=== PATIENT | female | born 2000 | race Caucasian/White ===

== ENCOUNTER 2025-01-08 19:58 | Emergency (ER) | payer MEDICAID, SELFPAY ==
[2025-01-08 19:58] VITALS: BP 163/105; PULSE 121; RESP 26; TEMP 36.7; O2SAT 96; BMI 40.7
--- NOTE | 2025-01-08 20:00 | XR_ITS ---
PROCEDURE INFORMATION: Exam: XR Left Wrist Exam date and time: 01/08/2025 9:52 PM Age: 24 years old Clinical indication: Pain; Wrist; Left; Additional info: Multiple dog bites, trauma TECHNIQUE: Imaging protocol: Radiologic exam of the left wrist. Views: 3 or more views. COMPARISON: CR XR HAND LT MIN 3V 01/08/2025 9:52 PM FINDINGS: Bones/joints: Normal. Soft tissues: Dorsal soft tissue swelling. IMPRESSION: No acute findings. Dorsal soft tissue swelling
--- NOTE | 2025-01-08 20:00 | XR_ITS ---
PROCEDURE INFORMATION: Exam: XR Right Hand Exam date and time: 01/08/2025 9:52 PM Age: 24 years old Clinical indication: Pain; Hand; Right; Additional info: Multiple dog bites, trauma TECHNIQUE: Imaging protocol: Radiologic exam of the right hand. Views: 3 or more views. COMPARISON: CR XR WRIST RT MIN 3V 01/08/2025 9:52 PM FINDINGS: Bones/joints: Normal. Soft tissues: Normal. IMPRESSION: No acute findings.
--- NOTE | 2025-01-08 20:00 | XR_ITS ---
PROCEDURE INFORMATION: Exam: XR Left Hand Exam date and time: 01/08/2025 9:52 PM Age: 24 years old Clinical indication: Pain; Hand; Left; Additional info: Multiple dog bites, trauma TECHNIQUE: Imaging protocol: Radiologic exam of the left hand. Views: 3 or more views. COMPARISON: CR XR HAND LT MIN 3V 01/08/2025 9:52 PM FINDINGS: Bones/joints: Normal. Soft tissues: Soft tissue gas within the thenar space. No radiopaque foreign bodies are identified. Other findings: . IMPRESSION: 1. Soft tissue gas within the thenar space. 2. No radiopaque foreign bodies are identified.
--- NOTE | 2025-01-08 20:00 | XR_ITS ---
PROCEDURE INFORMATION: Exam: XR Right Wrist Exam date and time: 01/08/2025 9:52 PM Age: 24 years old Clinical indication: Pain; Wrist; Right; Additional info: Multiple dog bites, trauma TECHNIQUE: Imaging protocol: Radiologic exam of the right wrist. Views: 3 or more views. COMPARISON: CR XR HAND RT MIN 3V 01/08/2025 9:52 PM FINDINGS: Bones/joints: Normal. Soft tissues: Normal. IMPRESSION: No acute findings.
--- NOTE | 2025-01-08 20:04 | XR_ITS ---
PROCEDURE INFORMATION: Exam: XR Right Ankle Exam date and time: 01/08/2025 9:52 PM Age: 24 years old Clinical indication: Pain; Ankle; Right; Additional info: Multiple dog bites, trauma TECHNIQUE: Imaging protocol: Radiologic exam of the right ankle. Views: 3 or more views. COMPARISON: CR XR ANKLE RT MIN 3V 01/08/2025 9:52 PM FINDINGS: Bones/joints: Normal. Soft tissues: Normal. IMPRESSION: No acute findings.
--- NOTE | 2025-01-08 20:04 | XR_ITS ---
PROCEDURE INFORMATION: Exam: XR Left Foot Exam date and time: 01/08/2025 9:52 PM Age: 24 years old Clinical indication: Pain; Foot; Left; Additional info: Multiple dog bites, trauma TECHNIQUE: Imaging protocol: Radiologic exam of the left foot. Views: 3 or more views. COMPARISON: CR XR FOOT LT MIN 3V 01/08/2025 9:52 PM FINDINGS: Bones/joints: Normal. Soft tissues: Normal. IMPRESSION: No acute findings.
--- NOTE | 2025-01-08 20:04 | XR_ITS ---
PROCEDURE INFORMATION: Exam: XR Left Ankle Exam date and time: 01/08/2025 9:52 PM Age: 24 years old Clinical indication: Pain; Ankle; Left; Additional info: Multiple dog bites, trauma TECHNIQUE: Imaging protocol: Radiologic exam of the left ankle. Views: 3 or more views. COMPARISON: CR XR ANKLE LT MIN 3V 01/08/2025 9:52 PM FINDINGS: Bones/joints: Normal. Soft tissues: Normal. IMPRESSION: No acute findings.
--- NOTE | 2025-01-08 20:04 | XR_ITS ---
PROCEDURE INFORMATION: Exam: XR Left Knee Exam date and time: 01/08/2025 9:52 PM Age: 24 years old Clinical indication: Pain; Knee; Left; Additional info: Multiple dog bites, trauma TECHNIQUE: Imaging protocol: Radiologic exam of the left knee. Views: 3 views. COMPARISON: CR XR ANKLE LT MIN 3V 01/08/2025 9:52 PM FINDINGS: Bones/joints: Normal. Soft tissues: Normal. IMPRESSION: No acute findings.
--- NOTE | 2025-01-08 20:04 | XR_ITS ---
PROCEDURE INFORMATION: Exam: XR Right Foot Exam date and time: 01/08/2025 9:52 PM Age: 24 years old Clinical indication: Pain; Foot; Right; Additional info: Multiple dog bites, trauma TECHNIQUE: Imaging protocol: Radiologic exam of the right foot. Views: 3 or more views. COMPARISON: CR XR ANKLE RT MIN 3V 01/08/2025 9:52 PM FINDINGS: Bones/joints: Normal. Soft tissues: Normal. IMPRESSION: No acute findings.
[2025-01-08] MEDS: MORPHINE 4MG/ML SYRINGE 4 MG IV ×2 (20:05→21:02)
[2025-01-08] MEDS: KETOROLAC 30MG/ML VIAL 15 MG IV (20:05)
--- NOTE | 2025-01-08 20:05 | HMH.EDGENADL ---
Discharge Plan Disposition Patient Disposition: Home, Self-Care Condition: Good Prescriptions Prescriptions: New amoxicillin-pot clavulanate 875-125 mg tablet 1 tab PO BID Qty: 20 0RF hydrocodone-acetaminophen 5-325 mg tablet 1 tab PO Q8H PRN (Reason: pain) Qty: 12 0RF Referrals Follow up/Referrals: Provider,Referral, [Primary Care Provider] - See instructions Activity Restrictions/Add. Instructions Additional Instructions/Restrictions: You were evaluated in the ER and are appropriate for discharge at this time. Take the prescribed antibiotics as directed, do not skip doses, do not stop taking them early. Take Tylenol and ibuprofen if needed for pain, do not exceed the recommended dose on the bottle. Drink water and eat a small snack each time you take these medications to avoid side effects. Only take the prescribed hydrocodone?acetaminophen if needed for severe breakthrough pain after taking [id number] medications. Please be cautious that this medication contains acetaminophen (Tylenol) so be mindful of this when dosing your daily amount of Tylenol Use the provided bacitracin ointment twice daily on your wounds. Keep the wounds clean and dry, wash them with warm soapy water. Keep the splint clean and dry. Do not get the splint wet, do not put pressure on it. If you have damage to the splint, come back to the ER for replacement. Follow-up with your primary care doctor for reevaluation. Follow-up with [facility] on 01/11/2025. This will be with Dr. Troncoso. The office will call you. Please answer any unfamiliar [phone] phone numbers until you have your appointment time secured. Return to the ER with new, worsening, or otherwise concerning symptoms including but not limited to signs or symptoms of infection, worsening pain, or damage to the splint. Clinical Impressions Clinical Impression: Dog bite of multiple sites, Laceration of multiple sites, Laceration of extensor muscle, fascia and tendon of right index finger at wrist and hand level, initial encounter Instructions Patient Instructions: Animal Bites, DI for Laceration Repair, DI for Dog Bite Print Language Print Language: Belarusian Discharge ED Provider: Korin Marrero General Adult HPI <Korin Marrero DO - Last Filed: 01/09/25 00:00> General Chief complaint: Animal Bite Stated complaint: dog bite Time Seen by Provider: 01/08/25 20:00 History of Present Illness HPI narrative: This patient is a 24-year-old female who denies significant past medical history presenting to the emergency department for evaluation with concern for multiple dog bites. Patient reports that she is dog sitting for her cousin who has 2 pit bulls, and she has a 6-month-old great gladis puppy. She notes that she has been trying to keep them separate, however the jared knocked her bedroom door open and he ran into her room, attacking her puppy. She states that she got injured trying to break up the dog fight. She has injuries to both hands, her left lateral leg, both feet and ankles. She was barefoot when this happened. She states she believes the dogs are up-to-date on vaccinations including rabies, but she is not sure when her last tetanus shot was. She denies any new medication allergies. She is crying and very anxious appearing on initial assessment and does not further contribute to history. Related Data Previous Rx's ?Medication ?Instructions ?Recorded amoxicillin 875 mg-potassium 1 tab PO BID #20 tabs 01/08/25 clavulanate 125 mg tablet hydrocodone 5 mg-acetaminophen 325 1 tab PO Q8H PRN pain #12 tabs 01/08/25 mg tablet Allergies Allergy/AdvReac Type Severity Reaction Status Date / Time No Known Allergies Allergy Verified 01/08/25 20:12 [facility] <Korin Marrero DO - Last Filed: 01/09/25 00:00> [facility] Disclaimer: The information contained in this section may have been updated after the patient was seen, as this information can be updated by other users. Social History (Updated 01/09/25 @ 00:00 by Korin Marrero DO) Smoking Status: Current every day smoker alcohol intake: never current occupational status: employed Travel in the last 8 weeks: None Have you lived/traveled outside US in past 30 days?: No Contact w/someone who lives/traveled outside US past 30 days?: No Exposure to someone with infectious disease in past 14 days?: No Do you have a fever (greater than 100.4 F or 38 C)?: No Have you tested positive for COVID-19: No Exposed to someone with COVID-19 in past 14 days?: No Do you have a sore throat?: No Do you have a cough?: No Do you have any weakness?: No Do you have any diarrhea?: No Are you experiencing any unusual bleeding?: No Do you have any muscle aches/pain?: No Do you have any abdominal pain?: No Are you experiencing loss of taste or smell?: No <Korin Marrero DO - Last Filed: 01/09/25 00:00> ROS Obtained: Yes All systems reviewed & no additional complaints except as documented Physical Exam <Korin Marrero DO - Last Filed: 01/09/25 00:00> General General appearance: alert, anxious and obese Comment: Anxious, in pain, crying Head Head exam: atraumatic and normocephalic Eye Eye exam: Present normal appearance, PERRL and EOMI ENT ENT exam: Present normal exam, normal oropharynx, mucous membranes moist and normal external ear exam Neck Neck exam: Present normal inspection, full ROM and trachea midline; Absent tenderness Chest Chest inspection: Present normal inspection and symmetric chest wall rise; Absent tenderness Respiratory Respiratory exam: Present normal lung sounds bilaterally; Absent respiratory distress, wheezes, stridor or accessory muscle use Cardiovascular Cardiovascular exam: Present regular rate and normal rhythm Abdominal Exam Abdominal exam: Present soft; Absent distention, tenderness or guarding Extremities Exam Extremities exam: Present tenderness, normal capillary refill, edema and other (Dog bites to the bilateral hands, R heel/posterior ankle, L foot, L lateral leg/knee) Back Exam Back exam: Present normal inspection and full ROM; Absent tenderness Neurological Exam Neurological exam: Present alert, oriented X3, CN II-XII intact and normal gait; Absent motor sensory deficit Psychiatric Psychiatric exam: Present normal affect and normal mood Skin Skin exam: Present warm and dry Medical Decision Making <Korin Marrero DO - Last Filed: 01/09/25 00:00> Medical Records Medical records reviewed: Yes I reviewed the patient's medical records. Screening: Per USPSTF and CDC recommendations, given the prevalence of disease in our region, it is our hospital?s policy to screen for HIV and viral Hepatitis for all patients aged 18 and over and those with ongoing risk factors. Michael Inquiry Pt receiving controlled substance: Yes Michael was queried for this patient: Yes Risks and benefits of using a controlled substance: were discussed with pt by me Vital Signs: 01/08/25 19:58 01/08/25 20:25 01/08/25 20:30 Temperature 98.1 F Temperature Source Oral Pulse Rate 97 H 108 H Pulse Rate [Radial] 121 H Respiratory Rate 26 H Blood Pressure 150/96 H 172/101 H Blood Pressure [Right Arm] 163/105 H Blood Pressure Mean [Right Arm] 124 Blood Pressure Position Blood Pressure Position [Right Arm] Sitting 02 Sat by Pulse Oximetry 96 97 96 Oxygen Delivery Method Room Air 01/08/25 20:46 01/08/25 21:00 Temperature Temperature Source Pulse Rate 98 H 101 H Pulse Rate [Radial] Respiratory Rate 24 Blood Pressure 170/101 H 170/107 H Blood Pressure [Right Arm] Blood Pressure Mean [Right Arm] Blood Pressure Position Sitting Blood Pressure Position [Right Arm] 02 Sat by Pulse Oximetry 96 98 Oxygen Delivery Method Room Air Lab Data Lab results reviewed: Yes I reviewed the patient's lab results. Lab Results 01/08/25 20:55: WBC 12.0 H, RBC 4.52, Hgb 13.7, Hct 40.8, MCV 90.3, MCH 30.3, MCHC 33.6, RDW 12.7, Plt Count 198, MPV 9.4, Neut % (Auto) 71.8, Lymph % (Auto) 18.9, Dickinson % (Auto) 7.4, Eos % (Auto) 1.3, Baso % (Auto) 0.3, Neut # (Auto) 8.6 H, Lymph # (Auto) 2.3, Dickinson # (Auto) 0.9, Eos # (Auto) 0.2, Baso # (Auto) 0.0, Sodium 138, Potassium 3.9, Chloride 106, Carbon Dioxide 22, Anion Gap 13.9, BUN 9, Creatinine 0.60, Estimated Creat Clear 269, Estimated GFR 123, Est GFR ( Amer) 149, Glucose 137 H, Calcium 8.6, Total Bilirubin 0.2, AST 29, ALT 35, Alkaline Phosphatase 89, Total Protein 6.9, Albumin 4.3, Globulin 2.6, Albumin/Globulin Ratio 1.7, Serum HCG, Qual Negative 01/08/25 20:55 01/08/25 20:55 Orders (Tests/Meds): ED MEDICATIONS Discontinued Medications Generic Name Dose Route Start Last Admin Trade Name Freq PRN Reason Stop Dose Admin Acetaminophen 1,000 mg 01/08/25 20:00 01/08/25 20:16 Acetaminophen 1,000mg/100ml Vial IV 01/08/25 20:01 1,000 mg ONCE ONE Administration Bacitracin 1 gm 01/09/25 01:15 01/09/25 01:33 Bacitracin Zinc Oint 30gm Tube TP 01/09/25 01:16 1 gm ONCE ONE Administration Ampicillin Sodium/Sulbactam 100 mls @ 200 mls/hr 01/08/25 20:00 01/08/25 20:16 Sodium 3 gm/ Sodium Chloride IV 01/08/25 20:01 200 mls/hr ONCE ONE Administration Ketorolac Tromethamine 15 mg 01/08/25 20:00 01/08/25 20:05 Ketorolac 30mg/Ml Vial IV 01/08/25 20:01 15 mg ONCE ONE Administration Lidocaine HCl 5 ml 01/09/25 01:16 01/09/25 01:47 Lidocaine 1% 10ml Mdv IJ 01/09/25 01:17 5 ml ONCE ONE Administration Lidocaine/Epinephrine 20 ml 01/08/25 22:31 01/08/25 22:49 Lidocaine 1% W/Epi 1:100,000 20ml Vial IJ 01/08/25 22:32 20 ml ONCE ONE Administration Morphine Sulfate 4 mg 01/08/25 20:00 01/08/25 20:05 Morphine 4mg/Ml Syringe IV 01/08/25 20:01 4 mg ONCE ONE Administration Morphine Sulfate 4 mg 01/08/25 20:59 01/08/25 21:02 Morphine 4mg/Ml Syringe IV 01/08/25 21:00 4 mg ONCE ONE Administration Ondansetron HCl 4 mg 01/08/25 20:00 01/08/25 20:11 Ondansetron 4mg/2ml Vial IV 01/08/25 20:01 4 mg ONCE ONE Administration Tetanus/Reduced Diphtheria/Acell Pertussis 0.5 ml 01/08/25 20:00 01/08/25 20:16 Tet/Diphth/Pert-Adult 0.5ml Syringe IM 01/08/25 20:01 0.5 ml .ONCE ONE Administration ORDERS Category Date Time Status Ankle XR - Left minimum 3 Views [XR ankle LT min 3V] Exams 01/08/25 20:04 Completed Stat Ankle XR -Right minimum 3 Views [XR ankle RT min 3V] Exams 01/08/25 20:04 Completed Stat Foot XR left minimum 3 views [XR foot LT min 3V] Stat Exams 01/08/25 20:04 Completed Foot XR right minimum 3 views [XR foot RT min 3V] Stat Exams 01/08/25 20:04 Completed Hand XR left minimum 3 views [XR hand LT min 3V] Stat Exams 01/08/25 20:00 Completed Hand XR right minimum 3 views [XR hand RT min 3V] Stat Exams 01/08/25 20:00 Completed Knee XR left 3 views [XR knee LT 3V] Stat Exams 01/08/25 20:04 Completed Wrist XR left minimum 3 views [XR wrist LT min 3V] Stat Exams 01/08/25 20:00 Completed Wrist XR right minimum 3 views [XR wrist RT min 3V] Exams 01/08/25 20:00 Completed Stat Complete Blood Count Auto Diff Stat Lab 01/08/25 20:55 Completed Comprehensive Metabolic Panel Stat Lab 01/08/25 20:55 Completed Serum [HCG Qualitative, Serum] Stat Lab 01/08/25 20:55 Completed Medical Decision Narrative: In summary, this patient is a 24-year-old female presenting to the Emergency Department for evaluation of dog bites after breaking up a dog fight between 2 pit bulls and her great [place]renees puppy. Differential diagnoses considered include but are not limited to open fracture, laceration, abrasion, neurovascular injury. Ruling out the most morbid conditions drove assessment. On exam, patient is very anxious appearing, crying, in pain. She appears to be neurovascularly intact in all 4 extremities but has significant limited range of motion of the right hand secondary to pain. Will reassess after pain medication. It is also difficult to estimate the extent of her wounds that she is covered in dried blood. Will copiously irrigate the wounds and further assess. Workup included x-rays of the injured extremities and basic lab valuation. Patient was given Tdap as well as IV Unasyn. She believes the dogs are up-to-date on vaccines including rabies, we did fill out dog bite form per protocol. She is to verify this and understands the importance. business area manager and police contacted, conducting investigation. Patient's wounds were copiously irrigated with sterile saline and Betadine. She has multiple puncture wounds to the left hand and some abrasions of the left forearm, she has multiple puncture wounds to the right hand and a large curvilinear flap laceration to the dorsal aspect of the right hand. She has a laceration to the right heel about the Achilles tendon which seems to be intact. She has puncture wounds to the right foot. She also has puncture wounds to the left foot and a laceration that is 1 cm linear proximal to her left big toe. She is neurovascularly intact distally in all 4 extremities with intact range of motion. I independently interpreted x-rays prior to the radiologist read and noted no fracture. Please see their read for final interpretation. On reassessment, patient has continued pain and is crying out as we irrigate her wounds. Given this, she was given additional dose of IV morphine. Her wounds were very copiously irrigated with saline and Betadine. Her wounds were anesthetized with lidocaine with epinephrine, 1%. Please see notes below. I elected for loose approximation given contaminated puncture wounds from dog bites. Laceration to dorsum of R hand: 4 cm curvilinear -wound was anesthetized with lidocaine with epinephrine, total of 4 cc. Wound was explored and copiously irrigated. I noted concern for a severed tendon, and when I pull the tendon she does have movement of her right index finger. No active bleeding noted. She is right-hand dominant. Laceration not repaired pending hand consult from [facility]. Tolerated well, no complications. Laceration to thenar eminence of L hand: 1.5 cm curvilinear laceration. Anesthetized with 1 cc of lidocaine with epinephrine. Copiously irrigated. Explored with no contamination, no deep tissue injury. She is neurovascularly intact distally. Wound was repaired with 4-0 Ethilon sutures x 2, simple interrupted. Loose approximation. Tolerated well, no complications. Laceration to dorsum of L foot: 2 cm linear laceration. Anesthetized with 2 cc of lidocaine with epinephrine. Copiously irrigated. Explored with no contamination, no deep tissue injury. She is neurovascularly intact distally. Wound was repaired with 4-0 Ethilon sutures x 2, simple interrupted. Loose approximation. Tolerated well, no complications. Laceration to medial R ankle: 2 cm linear laceration. Anesthetized with 2 cc of lidocaine with epinephrine. Copiously irrigated. Explored with no contamination, no deep tissue injury. She is neurovascularly intact distally. Wound was repaired with 4-0 Ethilon sutures x 2, simple interrupted. Loose approximation. Tolerated well, no complications. Laceration to lateral R ankle: 2 cm linear laceration. Anesthetized with 2 cc of lidocaine with epinephrine. Copiously irrigated. Explored with no contamination, no deep tissue injury. She is neurovascularly intact distally. Wound was repaired with 4-0 Ethilon sutures x 2, simple interrupted. Loose approximation. Tolerated well, no complications. Patient care was signed out to the oncoming provider, Dr. Rosa, pending [facility] hand consult. <Dee Dee Rosa MD - Last Filed: 01/09/25 01:56> Vital Signs: 01/08/25 19:58 01/08/25 20:25 01/08/25 20:30 Temperature 98.1 F Temperature Source Oral Pulse Rate 97 H 108 H Pulse Rate [Radial] 121 H Respiratory Rate 26 H Blood Pressure 150/96 H 172/101 H Blood Pressure [Right Arm] 163/105 H Blood Pressure Mean [Right Arm] 124 Blood Pressure Position Blood Pressure Position [Right Arm] Sitting 02 Sat by Pulse Oximetry 96 97 96 Oxygen Delivery Method Room Air 01/08/25 20:46 01/08/25 21:00 Temperature Temperature Source Pulse Rate 98 H 101 H Pulse Rate [Radial] Respiratory Rate 24 Blood Pressure 170/101 H 170/107 H Blood Pressure [Right Arm] Blood Pressure Mean [Right Arm] Blood Pressure Position Sitting Blood Pressure Position [Right Arm] 02 Sat by Pulse Oximetry 96 98 Oxygen Delivery Method Room Air Lab Data Lab Results 01/08/25 20:55: WBC 12.0 H, RBC 4.52, Hgb 13.7, Hct 40.8, MCV 90.3, MCH 30.3, MCHC 33.6, RDW 12.7, Plt Count 198, MPV 9.4, Neut % (Auto) 71.8, Lymph % (Auto) 18.9, Dickinson % (Auto) 7.4, Eos % (Auto) 1.3, Baso % (Auto) 0.3, Neut # (Auto) 8.6 H, Lymph # (Auto) 2.3, Dickinson # (Auto) 0.9, Eos # (Auto) 0.2, Baso # (Auto) 0.0, Sodium 138, Potassium 3.9, Chloride 106, Carbon Dioxide 22, Anion Gap 13.9, BUN 9, Creatinine 0.60, Estimated Creat Clear 269, Estimated GFR 123, Est GFR ( Amer) 149, Glucose 137 H, Calcium 8.6, Total Bilirubin 0.2, AST 29, ALT 35, Alkaline Phosphatase 89, Total Protein 6.9, Albumin 4.3, Globulin 2.6, Albumin/Globulin Ratio 1.7, Serum HCG, Qual Negative Orders (Tests/Meds): ED MEDICATIONS Discontinued Medications Generic Name Dose Route Start Last Admin Trade Name Freq PRN Reason Stop Dose Admin Acetaminophen 1,000 mg 01/08/25 20:00 01/08/25 20:16 Acetaminophen 1,000mg/100ml Vial IV 01/08/25 20:01 1,000 mg ONCE ONE Administration Bacitracin 1 gm 01/09/25 01:15 01/09/25 01:33 Bacitracin Zinc Oint 30gm Tube TP 01/09/25 01:16 1 gm ONCE ONE Administration Ampicillin Sodium/Sulbactam 100 mls @ 200 mls/hr 01/08/25 20:00 01/08/25 20:16 Sodium 3 gm/ Sodium Chloride IV 01/08/25 20:01 200 mls/hr ONCE ONE Administration Ketorolac Tromethamine 15 mg 01/08/25 20:00 01/08/25 20:05 Ketorolac 30mg/Ml Vial IV 01/08/25 20:01 15 mg ONCE ONE Administration Lidocaine HCl 5 ml 01/09/25 01:16 01/09/25 01:47 Lidocaine 1% 10ml Mdv IJ 01/09/25 01:17 5 ml ONCE ONE Administration Lidocaine/Epinephrine 20 ml 01/08/25 22:31 01/08/25 22:49 Lidocaine 1% W/Epi 1:100,000 20ml Vial IJ 01/08/25 22:32 20 ml ONCE ONE Administration Morphine Sulfate 4 mg 01/08/25 20:00 01/08/25 20:05 Morphine 4mg/Ml Syringe IV 01/08/25 20:01 4 mg ONCE ONE Administration Morphine Sulfate 4 mg 01/08/25 20:59 01/08/25 21:02 Morphine 4mg/Ml Syringe IV 01/08/25 21:00 4 mg ONCE ONE Administration Ondansetron HCl 4 mg 01/08/25 20:00 01/08/25 20:11 Ondansetron 4mg/2ml Vial IV 01/08/25 20:01 4 mg ONCE ONE Administration Tetanus/Reduced Diphtheria/Acell Pertussis 0.5 ml 01/08/25 20:00 01/08/25 20:16 Tet/Diphth/Pert-Adult 0.5ml Syringe IM 01/08/25 20:01 0.5 ml .ONCE ONE Administration ORDERS Category Date Time Status Ankle XR - Left minimum 3 Views [XR ankle LT min 3V] Exams 01/08/25 20:04 Completed Stat Ankle XR -Right minimum 3 Views [XR ankle RT min 3V] Exams 01/08/25 20:04 Completed Stat Foot XR left minimum 3 views [XR foot LT min 3V] Stat Exams 01/08/25 20:04 Completed Foot XR right minimum 3 views [XR foot RT min 3V] Stat Exams 01/08/25 20:04 Completed Hand XR left minimum 3 views [XR hand LT min 3V] Stat Exams 01/08/25 20:00 Completed Hand XR right minimum 3 views [XR hand RT min 3V] Stat Exams 01/08/25 20:00 Completed Knee XR left 3 views [XR knee LT 3V] Stat Exams 01/08/25 20:04 Completed Wrist XR left minimum 3 views [XR wrist LT min 3V] Stat Exams 01/08/25 20:00 Completed Wrist XR right minimum 3 views [XR wrist RT min 3V] Exams 01/08/25 20:00 Completed Stat Complete Blood Count Auto Diff Stat Lab 01/08/25 20:55 Completed Comprehensive Metabolic Panel Stat Lab 01/08/25 20:55 Completed Serum [HCG Qualitative, Serum] Stat Lab 01/08/25 20:55 Completed Medical Decision Narrative: In summary, this patient is a 24-year-old female presenting to the Emergency Department for evaluation of dog bites after breaking up a dog fight between 2 pit bulls and her great [place]renees puppy. Differential diagnoses considered include but are not limited to open fracture, laceration, abrasion, neurovascular injury. Ruling out the most morbid conditions drove assessment. On exam, patient is very anxious appearing, crying, in pain. She appears to be neurovascularly intact in all 4 extremities but has significant limited range of motion of the right hand secondary to pain. Will reassess after pain medication. It is also difficult to estimate the extent of her wounds that she is covered in dried blood. Will copiously irrigate the wounds and further assess. Workup included x-rays of the injured extremities and basic lab valuation. Patient was given Tdap as well as IV Unasyn. She believes the dogs are up-to-date on vaccines including rabies, we did fill out dog bite form per protocol. She is to verify this and understands the importance. business area manager and police contacted, conducting investigation. Patient's wounds were copiously irrigated with sterile saline and Betadine. She has multiple puncture wounds to the left hand and some abrasions of the left forearm, she has multiple puncture wounds to the right hand and a large curvilinear flap laceration to the dorsal aspect of the right hand. She has a laceration to the right heel about the Achilles tendon which seems to be intact. She has puncture wounds to the right foot. She also has puncture wounds to the left foot and a laceration that is 1 cm linear proximal to her left big toe. She is neurovascularly intact distally in all 4 extremities with intact range of motion. I independently interpreted x-rays prior to the radiologist read and noted no fracture. Please see their read for final interpretation. On reassessment, patient has continued pain and is crying out as we irrigate her wounds. Given this, she was given additional dose of IV morphine. Her wounds were very copiously irrigated with saline and Betadine. Her wounds were anesthetized with lidocaine with epinephrine, 1%. Please see notes below. I elected for loose approximation given contaminated puncture wounds from dog bites. Laceration to dorsum of R hand: 4 cm curvilinear -wound was anesthetized with lidocaine with epinephrine, total of 4 cc. Wound was explored and copiously irrigated. I noted concern for a severed tendon, and when I pull the tendon she does have movement of her right index finger. No active bleeding noted. She is right-hand dominant. Laceration not repaired pending hand consult from [facility]. Tolerated well, no complications. Laceration to thenar eminence of L hand: 1.5 cm curvilinear laceration. Anesthetized with 1 cc of lidocaine with epinephrine. Copiously irrigated. Explored with no contamination, no deep tissue injury. She is neurovascularly intact distally. Wound was repaired with 4-0 Ethilon sutures x 2, simple interrupted. Loose approximation. Tolerated well, no complications. Laceration to dorsum of L foot: 2 cm linear laceration. Anesthetized with 2 cc of lidocaine with epinephrine. Copiously irrigated. Explored with no contamination, no deep tissue injury. She is neurovascularly intact distally. Wound was repaired with 4-0 Ethilon sutures x 2, simple interrupted. Loose approximation. Tolerated well, no complications. Laceration to medial R ankle: 2 cm linear laceration. Anesthetized with 2 cc of lidocaine with epinephrine. Copiously irrigated. Explored with no contamination, no deep tissue injury. She is neurovascularly intact distally. Wound was repaired with 4-0 Ethilon sutures x 2, simple interrupted. Loose approximation. Tolerated well, no complications. Laceration to lateral R ankle: 2 cm linear laceration. Anesthetized with 2 cc of lidocaine with epinephrine. Copiously irrigated. Explored with no contamination, no deep tissue injury. She is neurovascularly intact distally. Wound was repaired with 4-0 Ethilon sutures x 2, simple interrupted. Loose approximation. Tolerated well, no complications. Patient care was signed out to the oncoming provider, Dr. Rosa, pending hand consult. Rosa: Upon my assumption of care patient is stable, I agree with the assessment and plan from Dr. Marrero. I reviewed imaging and I am reassured that there are no osseous injuries or retained foreign bodies. hand surgery eventually called back and I spoke with Dr. Hart with the plastic surgery hand team. After reviewing the patient and her injuries, he recommended loose closure with nylon suture of the wound on the posterior right hand and then splinting in extension, he recommended a radial gutter splint with the index and long fingers in extension to help protect the extensor tendons. He recommended follow-up outpatient on 01/11/[address] [place] at the hand office. transfer center was provided patient's information for contact. I loosely repaired the patient's laceration and applied a splint as recommended by Dr. Hart. See procedure notes for details. Patient has received Tdap as well as IV antibiotics and Augmentin was prescribed. She was also provided bacitracin and pain medications. Patient was given instructions on wound care, splint care, follow-up, and return precautions for the ER. She indicated understanding and the patient was discharged in stable condition. Procedures <Dee Dee Rosa MD - Last Filed: 01/09/25 01:56> Risk/Benefits of Procedure(s) Were Explained: Yes Laceration Laceration 1: Site: hand Side (If applicable): right Size (cm): 4 Description: irregular (Curvilinear) Depth: involves subcutaneous layer and involves tendon Local Anesthetic: lidocaine 1% Amount of anesthesia used (mL): 5 Pre-repair: wound explored (Damage to the deep structures including the extensor tendon as previously documented) and irrigated extensively Skin layer closed with: nylon Size (cm): 4-0 Number of sutures: 5 Technique: simple, interrupted (Loose approximation) Orthopedic Splinting/Casting Injury #1: Side: right Upper Extremity Injury Location: hand Upper Extremity Immobilizer: finger (other) (Radial gutter with index and long finger in extension; used soft roll, plaster, Jose Manuel wrap) Post Cast/Splinting Neuro Status: intact and no change Post Cast/Splinting Vasc Status: intact and no change Critical Care <Korin Marrero, DO - Last Filed: 01/09/25 00:00> Critical Care Time Critical Care Time: No
[2025-01-08] MEDS: ONDANSETRON 4MG/2ML VIAL 4 MG IV (20:11)
[2025-01-08] MEDS: TET/DIPHTH/PERT-ADULT 0.5ML SYRINGE 0.5 ML IM (20:16)
[2025-01-08] MEDS: AMPICILLIN SODIUM/SULBACTAM 3 GM in 0.9 % SODIUM CHLORIDE 100 ML IV (20:16)
[2025-01-08] MEDS: ACETAMINOPHEN 1,000MG/100ML VIAL 1000 MG IV (20:16)
[2025-01-08 20:25] VITALS: BP 150/96; PULSE 97; O2SAT 97
[2025-01-08 20:30] VITALS: BP 172/101; PULSE 108; O2SAT 96
[2025-01-08 20:46] VITALS: BP 170/101; PULSE 98; RESP 24; O2SAT 96
--- NOTE | 2025-01-08 20:49 | PC.NURSE ---
EDT at bedside to irrigate multiple wounds
[2025-01-08 21:00] VITALS: BP 170/107; PULSE 101; O2SAT 98
--- NOTE | 2025-01-08 21:00 | PC.NURSE ---
laborer powerhouse notified of severity of injuries.
--- NOTE | 2025-01-08 21:05 | PC.NURSE ---
Labs drawn and sent
[2025-01-08 21:11] LABS: Basophils % 0.3 % (0.1-2.0); Eosinophils # 0.2 K/mm3 (0.0-0.4); Eosinophils % 1.3 % (0.1-12.0); Hematocrit 40.8 % (37.0-47.0); Hemoglobin 13.7 g/dL (12.2-16.2); Lymphocytes # 2.3 K/mm3 (0.7-4.5); Lymphocytes % 18.9 % (10-50); Mean Corpuscular HGB Conc 33.6 g/dL (31.8-35.4); Mean Corpuscular Hemoglobin 30.3 pg (27.0-31.2); Mean Corpuscular Volume 90.3 fl (81-99); Mean Platelet Volume 9.4 fl (7.4-10.4); Monocytes # 0.9 K/mm3 (0.1-1.0); Monocytes % 7.4 % (1.7-9.3); Neutrophils # 8.6 K/mm3 (1.8-7.8); Neutrophils % 71.8 % (37.0-80.0); Platelet Count 198 K/mm3 (142-424); Red Blood Count 4.52 M/mm3 (4.20-5.40); Red Cell Distribution Width 12.7 % (11.5-17.5)
--- NOTE | 2025-01-08 21:14 | PC.NURSE ---
marine design engineer here
[2025-01-08 21:17] LABS: Albumin Level 4.3 g/dl (3.5-5.0); Chloride 106 mmol/L (98-107)
[2025-01-08 21:18] LABS: Potassium 3.9 mmoL/L (3.5-5.1); Sodium 138 mmol/L (136-145)
[2025-01-08 21:20] LABS: Alanine Aminotransferase 35 U/L (12-78); Anion Gap 13.9 mEq/L (5-15); Aspartate Amino Transferase 29 U/L (14-36); Bilirubin,Total 0.2 mg/dl (0.2-1.3); Blood Urea Nitrogen 9 mg/dl (7-17); Carbon Dioxide 22 mmol/L (22.0-30.0); Creatinine Clearance Estimated 269 mL/min (50-200); Estimated Glomerular Filt Rate 123 ml/min (>60); GFR (African American) 149 ML/MIN (>60)
[2025-01-08 21:21] LABS: Albumin/Globulin Ratio 1.7 (1.1-1.8); Alkaline Phosphatase 89 U/L (38-126); Calcium 8.6 mg/dl (8.4-10.2); Globulin 2.6 g/dL (1.3-3.2); Glucose 137 mg/dl (74-100); Total Protein,Serum 6.9 g/dl (6.3-8.2)
--- NOTE | 2025-01-08 21:22 | PC.NURSE ---
guest relations officer came to see Pt, pt states that all the animals are up to date on shots and that they will be quarantined at the pt's house
--- NOTE | 2025-01-08 21:35 | PC.NURSE ---
PD at bedside with patient, asked for nurse.
[2025-01-08 21:41] LABS: HCG Qualitative, Serum Negative (Negative)
--- NOTE | 2025-01-08 21:55 | PC.NURSE ---
xrays done at bedside
--- NOTE | 2025-01-08 22:38 | PC.NURSE ---
pt aox4, nad noted, rr even and non labored, skin pwd, lidocaine pulled and given to Dr Marrero for lac repair.
[2025-01-08] MEDS: LIDOCAINE 1% W/EPI 1:100,000 20ML VIAL 20 ML IJ (22:49)
--- NOTE | 2025-01-08 23:10 | PC.NURSE ---
Called [facility] for a hand consult regarding pt
--- NOTE | 2025-01-09 00:20 | PC.NURSE ---
provider on the phone with [facility] hand at this time
--- NOTE | 2025-01-09 01:27 | PC.NURSE ---
provider at bedside to repair and splint injured extr.
[2025-01-09] MEDS: BACITRACIN ZINC OINT 30GM TUBE TP (01:33)
[2025-01-09] MEDS: LIDOCAINE 1% 10ML MDV 5 ML IJ (01:47)
[2025-01-09 02:15] VITALS: BP 148/72; PULSE 74; RESP 14; TEMP 36.8; O2SAT 100
--- NOTE | 2025-01-09 02:15 | PC.NURSE ---
wet to dry dressings placed on left hand and bilateral feet prior to giving patient socks to wear home.
== END 2025-01-09 02:17 | disposition home or self-care (01) ==
PROVIDERS: Emergency Provider Emergency Medicine
DX: S61.210A Laceration without foreign body of right index finger without damage to nail, initial encounter (principal); S61.412A Laceration without foreign body of left hand, initial encounter; S91.312A Laceration without foreign body, left foot, initial encounter; S91.011A Laceration without foreign body, right ankle, initial encounter; S61.411A Laceration without foreign body of right hand, initial encounter; W54.0XXA Bitten by dog, initial encounter
CPT/HCPCS: 12002; 73110; 73130; 73562; 73610; 73630; 80053; 84703; 85025; 90471; 90715; 96374; 96375; 99285; J0131; J0295; J1885; J2270; J2405